=== PATIENT | female | born 1995 | race Caucasian/White ===

== ENCOUNTER 2018-08-05 15:53 | Emergency (ER) | payer BC ==
[2018-08-05 16:08] VITALS: BP 126/68
[2018-08-05] MEDS ORDERED: predniSONE TAB* 20 MG PO ONE (16:35)
--- NOTE | 2018-08-05 16:41 | ED ---
Upper Extremity Pain - HPI Summary HPI Summary: 23 yr old female with the complaint of rash and itching to the hands. Onset of symptoms just prior to coming here. She had touched a [employer] plant stem and her hands got itchy, and a little localized swelling. She has not had tongue or lip swelling, no SOB. She is currently feeling a lot better and her hands have pretty much resolved at this point. She washed her hands well after touching the plant and having the onset of symptoms. - History of Current Complaint Chief Complaint: UCSkin Stated Complaint: SKIN CONCERN Time Seen by Provider: 08/05/18 16:31 Hx Last Menstrual Period: nexplanon - Allergies/Home Medications Allergies/Adverse Reactions: Allergies Allergy/AdvReac Type Severity Reaction Status Date / Time acetaminophen [From Tylenol] Allergy throat Verified 08/05/18 16:00 swells, arms turn blue diphenhydramine Allergy Anaphylatic Verified 08/05/18 16:00 [From Benadryl Allergy] Shock Home Medications: Home Medications Amoxicillin/Clavulanate TAB* [Augmentin TAB 500 mg*] 500 mg PO SEE INSTRUCTIONS 08/05/18 [History Confirmed 08/05/18] Benzonatate CAP* [Tessalon 100 MG CAP*] 100 mg PO TID 08/05/18 [History Confirmed 08/05/18] Etonogestrel [Nexplanon] 68 mg IMPLANT ONCE 08/05/18 [History Confirmed 08/05/18 ] PMH/Surg Hx/FS Hx/Imm Hx Infectious Disease History: No Infectious Disease History: Denies: Traveled Outside the [place] in Last 30 Days - Family History Known Family History: Positive: None - Social History Occupation: Student Alcohol Use: Occasionally Substance Use Type: Reports: None Smoking Status (MU): Never Smoked Tobacco Review of Systems Constitutional: Negative Eyes: Negative Respiratory: Negative Positive: Rash - hands All Other Systems Reviewed And Are Negative: Yes Physical Exam Triage Information Reviewed: Yes Vital Signs On Initial Exam: Initial Vitals Temp Pulse Resp BP Pulse Ox 98.8 F 85 20 126/68 99 08/05/18 16:02 08/05/18 16:02 08/05/18 16:02 08/05/18 16:02 08/05/18 16:02 Vital Signs Reviewed: Yes Appearance: Positive: Well-Appearing, No Pain Distress Skin: Positive: Other - mild localized red patches on hands. No hives or other skin manifestations. Eyes: Positive: EOMI ENT: Positive: Normal ENT inspection, Pharynx normal Neck: Positive: Supple Respiratory/Lung Sounds: Positive: Clear to Auscultation, Breath Sounds Present Cardiovascular: Positive: RRR. Negative: Murmur Abdomen Description: Negative: Distended Musculoskeletal: Positive: Strength/ROM Intact Neurological: Positive: Sensory/Motor Intact, Alert, Oriented to Person Place, Time, CN Intact II-III Psychiatric: Positive: Normal - Lilibeth Coma Scale Best Eye Response: 4 - Spontaneous Best Motor Response: 6 - Obeys Commands Best Verbal Response: 5 - Oriented Coma Scale Total: 15 Diagnostics - Vital Signs Vital Signs Temp Pulse Resp BP Pulse Ox 08/05/18 16:02 98.8 F 85 20 126/68 99 - Laboratory Lab Statement: Any lab studies that have been ordered have been reviewed, and results considered in the medical decision making process. Course/Dx - Course Course Of Treatment: 23 yr old with rash to hands after touching [employer] plant. Rash resolving well. Rx one dose prednisone. - Diagnoses Provider Diagnoses: Allergic reaction Discharge - Sign-Out/Discharge Documenting (check all that apply): Patient Departure All imaging exams completed and their final reports reviewed: No Studies - Discharge Plan Condition: Good Disposition: HOME Patient Education Materials: General Allergic Reaction (ED) Referrals: Miguel Angel Lagunas NP [Primary Care Provider] - 1 Day - Billing Disposition and Condition Condition: GOOD Disposition: Home
== END 2018-08-05 16:53 | disposition home or self-care (01) ==
LOC: UCCORT 15:53
DX: T78.49XA Other allergy, initial encounter (principal); Y92.9 Unspecified place or not applicable; Z88.6 Allergy status to analgesic agent
CPT/HCPCS: 99201; G0463; J7512

== ENCOUNTER 2019-04-13 14:23 | Emergency (ER) | payer BC ==
[2019-04-13 15:01] VITALS: BP 127/66
--- NOTE | 2019-04-13 15:15 | ED ---
Lower Extremity - HPI Summary HPI Summary: 24 yr old female with the complaint of right lateral ankle redness post black fly bite in hospital for special surgery yesterday. The patient had the bite and then some pain and swelling over the lateral ankle over the bite with redness. No pain with bearing weight or walking. No fever. - History of Current Complaint Chief Complaint: HOLLISkin Stated Complaint: RT ANKLE PAIN Time Seen by Provider: 04/13/19 15:05 Hx Last Menstrual Period: nexplanon Pain Intensity: 3 - Allergies/Home Medications Allergies/Adverse Reactions: Allergies Allergy/AdvReac Type Severity Reaction Status Date / Time acetaminophen [From Tylenol] Allergy throat Verified 04/13/19 14:56 swells, arms turn blue diphenhydramine Allergy Anaphylatic Verified 04/13/19 14:56 [From Benadryl Allergy] Shock peanut Allergy Swelling Verified 04/13/19 14:56 of throat and fingers turn blue. Home Medications: Home Medications Neomycin/Bacitracin/Polymyxinb [Neosporin Ointment] 28.3 gm TP DAILY PRN [History Confirmed 04/13/19] PMH/Surg Hx/FS Hx/Imm Hx Infectious Disease History: No Infectious Disease History: Denies: Traveled Outside the [place] in Last 30 Days - Family History Known Family History: Positive: None - Social History Occupation: Student Alcohol Use: Rare Substance Use Type: Reports: None Smoking Status (MU): Never Smoked Tobacco Review of Systems Constitutional: Negative Positive: Other - bug bite and redness All Other Systems Reviewed And Are Negative: Yes Physical Exam Triage Information Reviewed: Yes Vital Signs On Initial Exam: Initial Vitals Temp Pulse Resp BP Pulse Ox 97.9 F 76 15 127/66 100 04/13/19 14:58 04/13/19 14:58 04/13/19 14:58 04/13/19 14:58 04/13/19 14:58 Vital Signs Reviewed: Yes Appearance: Positive: Well-Appearing, No Pain Distress Skin: Positive: Other - cellulitis around bite right lateral ankle. No joint efffuions Head/Face: Positive: Normal Head/Face Inspection Eyes: Positive: EOMI ENT: Positive: Normal ENT inspection Neck: Positive: Nontender Respiratory/Lung Sounds: Positive: Clear to Auscultation, Breath Sounds Present Cardiovascular: Positive: RRR, Pulses are Symmetrical in both Upper and Lower Extremities Abdomen Description: Negative: Distended Musculoskeletal: Positive: Other - right ankle FROM. No effusion, no pain on ROM or weight bearing. There is redness around bug bite pablo with mild STS. Neurological: Positive: Sensory/Motor Intact, Alert, Oriented to Person Place, Time, CN Intact II-III Diagnostics - Vital Signs Vital Signs Temp Pulse Resp BP Pulse Ox 04/13/19 14:58 97.9 F 76 15 127/66 100 - Laboratory Lab Statement: Any lab studies that have been ordered have been reviewed, and results considered in the medical decision making process. Lower Extremity Course/Dx - Diagnoses Provider Diagnoses: Bug bite, Cellulitis Discharge - Sign-Out/Discharge Documenting (check all that apply): Patient Departure All imaging exams completed and their final reports reviewed: No Studies - Discharge Plan Condition: Good Disposition: HOME Prescriptions: Cephalexin CAP* [Keflex CAP*] 500 mg PO QID #40 cap Patient Education Materials: Cellulitis (ED), Insect Bite or Sting (ED) Referrals: [facility] [Outside] No Primary Care Phys,NOPCP [Primary Care Provider] - - Billing Disposition and Condition Condition: GOOD Disposition: Home
== END 2019-04-13 15:23 | disposition home or self-care (01) ==
LOC: UCCORT 14:23
DX: S90.561A Insect bite (nonvenomous), right ankle, initial encounter (principal); W57.XXXA Bitten or stung by nonvenomous insect and other nonvenomous arthropods, initial encounter; Y93.9 Activity, unspecified; Y92.838 Other recreation area as the place of occurrence of the external cause; L03.115 Cellulitis of right lower limb
CPT/HCPCS: 99212; G0463

== ENCOUNTER → 2019-12-27 12:48 | Emergency (ER) | payer BC ==
--- NOTE | 2019-12-27 13:16 | ED ---
Complex/Multi-Sys Presentation - HPI Summary HPI Summary: Patient is a 24 y/o F presenting to [facility] via EMS for chief complaint of elevated BP. 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 She thought that she had low BG and went to eat food. However, she did not experience any relief in Sx. Patient went to nurse and was noted to have an elevated BP of 181/ 112. Patient has Hx of congenital aortic stenosis. Currently, lying down, the patient states that, "I feel fine". Initial BP was 126/82. She does note some anxiety is present. Patient denies STARK, changes to vision, swelling/pain in legs. She claims to have Hx of HTN; she states that she used to be on medication for her BP but was taken off of her medication five years ago. She reports that she has been without any BP issues since. No Hx of blood clots or thyroid issues noted. Patient states that she drank a cup of decaffeinated coffee this morning, which is atypical. Home medications and allergies are reviewed. - History Of Current Complaint Time Seen by Provider: 12/27/19 12:55 Hx Obtained From: Patient Timing: Intermittent, Lasting: Severity Currently: None Aggravating Factor(s): nothing Alleviating Factor(s): nothing Associated Signs And Symptoms: Positive: Dizziness, Other - positive - elevated BP, dizzy, "heavy", hot, anxious; negative - leg pain/swelling, changes to vision. Negative: Headache - Allergies/Home Medications Allergies/Adverse Reactions: Allergies Allergy/AdvReac Type Severity Reaction Status Date / Time acetaminophen [From Tylenol] Allergy throat Verified 12/27/19 13:16 swells, arms turn blue diphenhydramine Allergy Anaphylatic Verified 12/27/19 13:16 [From Benadryl Allergy] Shock peanut Allergy Swelling Verified 12/27/19 13:16 of throat and fingers turn blue. Home Medications: Home Medications Etonogestrel [Nexplanon] 68 mg IMPLANT ONCE 08/05/18 [History Confirmed 12/27/19 ] PMH/Surg Hx/FS Hx/Imm Hx Endocrine/Hematology History: Denies: Hx Thyroid Disease Cardiovascular History: Reports: Hx Hypertension - reported , Other Cardiovascular Problems/Disorders - aortic stenosis Denies: Hx Embolism Sensory History: Denies: Hx Legally Blind, Hx Deafness Opthamlomology History: Denies: Hx Legally Blind EENT History: Denies: Hx Deafness Infectious Disease History: Denies: Traveled Outside the [place] in Last 30 Days - Family History Known Family History: Positive: Other - [place] - Social History Alcohol Use: Rare Substance Use Type: Reports: None Smoking Status (MU): Never Smoked Tobacco Review of Systems Positive: Other - feeling hot, heavy, dizzy Eyes: Other - negative - changes to vision Positive: Other - elevated BP Negative: Myalgia, Edema Negative: Headache Positive: Anxious All Other Systems Reviewed And Are Negative: Yes Physical Exam - Summary Physical Exam Summary: Constitutional: Well-developed, Well-nourished, Alert. (-) Distressed Skin: Warm, Dry HENT: Normocephalic; Atraumatic Eyes: Conjunctiva normal Neck: Musculoskeletal ROM normal neck. (-) JVD, (-) Stridor, (-) Tracheal deviation Cardio: Rhythm regular, rate normal, Heart sounds normal; Intact distal pulses; The pedal pulses are 2+ and symmetric. Radial pulses are 2+ and symmetric. (-) Murmur Pulmonary/Chest wall: Effort normal. (-) Respiratory distress, (-) Wheezes, (-) Rales Abd: Soft, (-) tenderness, (-) Distension, (-) Guarding, (-) Rebound Musculoskeletal: (-) Edema Lymph: (-) Cervical adenopathy Neuro: Alert, Oriented x3 Psych: Mood and affect Normal Triage Information Reviewed: Yes Vital Signs On Initial Exam: Initial Vital Signs Pulse 97 12/27/19 13:10 Pulse Ox 99 12/27/19 13:10 Vital Signs Reviewed: Yes Procedures - Sedation Patient Received Moderate/Deep Sedation with Procedure: No Diagnostics - Laboratory Result Diagrams: 12/27/19 13:32 12/27/19 13:32 Lab Statement: Any lab studies that have been ordered have been reviewed, and results considered in the medical decision making process. - EKG 1350 Cardiac Rate: NL - rate of 75 BPM EKG Rhythm: Sinus Rhythm Summary of EKG Findings: EKG showed sinus rhythm with rate of 75 BPM, no ischemic changes. ED physician has reviewed and interpreted this EKG. Complex Multi-Symp Course/Dx Course Of Treatment: Patient is a 24 y/o F presenting to [facility] via EMS for chief complaint of elevated BP. 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 She thought that she had low BG and went to eat food. However, she did not experience any relief in Sx. Patient went to nurse and was noted to have an elevated BP of 181/112. Patient has Hx of congenital aortic stenosis. Currently , lying down, the patient states that, "I feel fine". Initial BP was 126/82. She does note some anxiety is present. Patient denies STARK, changes to vision, swelling/pain in legs. She claims to have Hx of HTN; she states that she used to be on medication for her BP but was taken off of her medication five years ago. She reports that she has been without any BP issues since. No Hx of blood clots or thyroid issues noted. Physical exam is unremarkable. EKG showed sinus rhythm with rate of 75 BPM, no ischemic changes. Bloodwork was obtained. TSH was within normal limits. Other abnormal values include WBC 11.1, absolute neuts 8.1,. Patient was discharged to home and will followup with PCP within three days. - Diagnoses Provider Diagnoses: Elevated BP without diagnosis of hypertension Discharge ED - Sign-Out/Discharge Documenting (check all that apply): Patient Departure - discharge - Discharge Plan Condition: Stable Disposition: HOME Patient Education Materials: Hypertension (ED) Forms: *Work Release Referrals: [facility] [Outside] - 3 Days Additional Instructions: PLEASE RETURN TO ED FOR ANY NEW OR WORSENING SYMPTOMS. PLEASE FOLLOW UP WITH YOUR PRIMARY CARE PHYSICIAN WITHIN THREE DAYS. - Billing Disposition and Condition Condition: STABLE Disposition: Home - Attestation Statements Document Initiated by Dimas: Yes Documenting Scribe: WANDY REGALADO Provider For Whom Dimas is Documenting (Include Credential): AVTAR BHATIA DO Scribhunter Attestation: WANDY Garner scribed for AVTAR BHATIA DO on 12/27/19 at 1835. Scribe Documentation Reviewed: Yes Provider Attestation: The documentation as recorded by the WANDY harrison accurately reflects the service I personally performed and the decisions made by me, AVTAR BHATIA DO Status of Scribe Document: Viewed
[2019-12-27 13:45] LABS: ABS Eosinophils 0.1 10^3/ul (0-0.6); ABS Lymphocytes 2.1 10^3/ul (1.0-4.8); ABS Monocytes 0.8 10^3/ul (0-0.8); ABS Neutrophils 8.1 10^3/ul (1.5-7.7); Eosinophil % 0.6 %; Hematocrit 39 % (35-47); Hemoglobin 12.8 g/dL (12.0-16.0); Lymphocyte % 18.5 %; Mean Corpuscular HGB Conc 33 g/dL (31-36); Mean Corpuscular Hemoglobin 28 pg (27-31); Mean Corpuscular Volume 84 fL (80-97); Mean Platelet Volume 8.1 fL (7.4-10.4); Platelet Count 405 10^3/uL (150-450); Red Blood Count 4.56 10^6 /uL (3.70-4.87); Red Cell Distribution Width 14 % (10-15); White Blood Count 11.1 10^3/uL (3.5-10.8)
[2019-12-27 14:01] LABS: Albumin 4.8 g/dL (3.2-5.2); Albumin/Globulin Ratio 1.6 (1-3); Calcium 10.1 mg/dL (8.6-10.3); EGFR African American 128.7 (>60); EGFR Non-African American 106.4 (>60); Potassium 3.5 mmol/L (3.5-5.0); Total Bilirubin 0.5 mg/dL (0.2-1.0); Total Protein 7.8 g/dL (6.4-8.9)
[2019-12-27 14:48] VITALS: BP 119/70
[2019-12-27 15:15] LABS: TSH (Thyroid Stimulating Horm) 2.89 mcIU/mL (0.34-5.60)
== END | disposition home or self-care (01) ==
LOC: ED 12:48
DX: R03.0 Elevated blood-pressure reading, without diagnosis of hypertension (principal); R42 Dizziness and giddiness; F41.9 Anxiety disorder, unspecified; Z88.8 Allergy status to other drugs, medicaments and biological substances; Z88.6 Allergy status to analgesic agent; Z91.010 Allergy to peanuts
CPT/HCPCS: 36415; 80053; 84443; 85025; 93005; 99283